=== PATIENT | male | born 1975 | race Caucasian/White ===

== ENCOUNTER 2023-10-27 08:13 | Emergency (ER) | payer OTHER ==
[~2023-10-27] VITALS: Ht 172.7 cm; Wt 90.0 kg
[2023-10-27 08:20] VITALS: O2SAT 100
[2023-10-27 11:29] VITALS: BP 125/67; PULSE 62; RESP 15; TEMP 98
== END 2023-10-27 11:10 | disposition home or self-care (01) ==
LOC: ER 08:13
DX: S09.90XA Unspecified injury of head, initial encounter (principal); S16.1XXA Strain of muscle, fascia and tendon at neck level, initial encounter; V49.40XA Driver injured in collision with unspecified motor vehicles in traffic accident, initial encounter; Y93.89 Activity, other specified; Y92.89 Other specified places as the place of occurrence of the external cause; Y99.8 Other external cause status
CPT/HCPCS: 99284